=== PATIENT | female | born 1965 | race Hispanic/Latino ===

== ENCOUNTER 2018-11-20 13:29 | Emergency (ER) | payer OTHER, SELFPAY ==
[2018-11-20] MEDS ORDERED: Ketorolac Tromethamine 30 MG/ML VIAL ONE (14:10)
--- NOTE | 2018-11-20 14:41 | RAD ---
2 VIEWS LEFT ELBOW: Date: 11/20/18 HISTORY: Pain. Trauma. Fall. FINDINGS: There is a fracture fragment with uncertain donor site at the level of the distal humerus. There is a comminuted fracture involving the olecranon, as well as the proximal radius. There is slight angulat ion of the distal radius. There appears to be extension of fracture to the articular surface of the r adius. IMPRESSION: Extensive fractures as described above. POS: [facility]
--- NOTE | 2018-11-20 14:43 | RAD ---
3 VIEWS LEFT WRIST: Date: 11/20/18 HISTORY: Injury after falling on outstretched hand. FINDINGS: There is slight ulnar minus configuration. There is no evidence of a fracture or dislocation seen. Th ere is slight heterogeneity of the distal radius probably related to trabecular pattern. IMPRESSION: 1. No acute fracture is seen. If there is high clinical concern for fracture of the navicular bone, follow-up imaging of the left wrist is recommended in 4-7 days after conservative management to evalu ate for radiographically occult fracture. 2. Slight ulnar minus configuration. POS: [facility]
[2018-11-20] MEDS ORDERED: Morphine 4 MG/ML Carpuject ONE (14:59)
== END 2018-11-20 15:20 | disposition home or self-care (01) ==
LOC: SCSER 13:29
DX: S52.025A Nondisplaced fracture of olecranon process without intraarticular extension of left ulna, initial encounter for closed fracture (principal); S52.125A Nondisplaced fracture of head of left radius, initial encounter for closed fracture; W22.8XXA Striking against or struck by other objects, initial encounter
CPT/HCPCS: 29105; 96372; J1885; J2270

== ENCOUNTER 2018-11-24 17:02 | Outpatient (CLI) | payer OTHER, SELFPAY ==
[2018-11-24 17:23] LABS: Hemoglobin 14.8 g/dL (12.0-16.0); Mean Corpuscular HGB CONC 31.9 g/dL (32.0-36.0); Mean Corpuscular Hemoglobin 28.5 pg (27.0-31.0); Mean Corpuscular Volume 89.3 fL (78.0-98.0); Mean Platelet Volume 6.7 fL (7.4-10.4); Platelet Count 388 thou/uL (130-400); RBC Distribution Width 13.1 % (11.5-14.5); White Blood Cell (WBC) Count 10.7 thou/uL (4.8-10.8)
--- NOTE | 2018-11-26 07:39 | EKG ---
Test Reason : Blood Pressure : / mmHG Vent. Rate : 093 BPM Atrial Rate : 093 BPM P-R Int : 124 ms QRS Dur : 078 ms QT Int : 344 ms P-R-T Axes : 044 -03 -03 degrees QTc Int : 427 ms Normal sinus rhythm Nonspecific ST abnormality Abnormal ECG No previous ECGs available Confirmed by ROCK LUNA ([id number]) on 11/26/2018 7:38:40 AM Referred By: JOSÉ MIGUEL Confirmed By:ROCK LUNA
== END 2018-11-24 17:03 | disposition home or self-care (01) ==
LOC: LABBT 17:02
PROVIDERS: ATTEND Orthopaedic Surgery
DX: Z01.818 Encounter for other preprocedural examination (principal)
CPT/HCPCS: 85027; 93005; 93010

== ENCOUNTER 2018-11-26 08:25 | Day surgery (SDC) | payer OTHER, SELFPAY ==
[2018-11-24 16:47] VITALS: BMI 40.7
[2018-11-26] MEDS ORDERED: Midazolam HCl 2 mg/2 ml Vial ONE (09:28)
[2018-11-26] MEDS ORDERED: Fentanyl 100 MCG/2 ML VIAL ONE ×2 (09:28→10:15)
[2018-11-26] MEDS ORDERED: Vancomycin HCl 1.5 GM in Sodium Chloride 0.9% 250 ML 300 ML IVPB SCH (09:30)
[2018-11-26] MEDS ORDERED: Ropivacaine 0.2% 550 ML 550 ML NERVE BLCK SCH (10:11)
[2018-11-26] MEDS ORDERED: Ondansetron PF 4 MG/2 ML Vial IVP PRN (10:11)
[2018-11-26] MEDS ORDERED: traMADol HCl 50 MG TAB PO PRN ×2 (10:11)
[2018-11-26] MEDS ORDERED: Promethazine HCl 25 MG/ML VIAL IM PRN (10:11)
[2018-11-26] MEDS ORDERED: HYDROcodone/Acetaminophen 5/325 mg Tablet PO PRN ×2 (10:11)
[2018-11-26] MEDS ORDERED: Zolpidem Tartrate 5 MG TAB PO PRN (10:11)
[2018-11-26] MEDS ORDERED: Ketorolac Tromethamine 30 MG/ML VIAL IVP SCH (12:00)
[2018-11-26] MEDS ORDERED: Ropivacaine 0.2% HCl/PF (40 MG/20 ML VIAL) ONE (13:54)
[2018-11-26] MEDS ORDERED: Ropivacaine 0.5% HCl/PF (150 MG/30 ML VIAL) ONE (13:54)
[2018-11-26] MEDS ORDERED: Lidocaine 1% PF 5 ML VIAL ONE (13:59)
[2018-11-26] MEDS ORDERED: Ondansetron PF 4 MG/2 ML Vial ONE (13:59)
[2018-11-26] MEDS ORDERED: PROPOFOL 200 MG/20 ML VIAL ONE (13:59)
[2018-11-26] MEDS ORDERED: Dexamethasone 20 MG/5 ML VIAL ONE (13:59)
[2018-11-26] MEDS ORDERED: Ketorolac Tromethamine 30 MG/ML VIAL ONE (13:59)
--- NOTE | 2018-11-26 20:47 | RAD ---
LEFT ELBOW FOUR VIEWS: 11/26/18 INDICATION: Fracture. COMPARISON: Prior exam dated 11/20/18. FINDINGS: There has been interval placement of partially threaded screw transfixing the patient's olecranon fra cture. Fracture alignment is near anatomic. There is radial head resection and placement of a radial head prosthesis. Total fluoroscopic time is 68.1 seconds. Total exposure was 1.70 mGy. IMPRESSION: Interval ORIF of the patient's olecranon fracture with radial head resection and placement of a radia l head prosthesis. POS: [facility]
--- NOTE | 2018-11-27 02:50 | OP ---
DATE OF PROCEDURE: 11/26/2018 PREOPERATIVE DIAGNOSES: 1. Comminuted left radial head fracture. 2. Olecranon fracture. 3. Medial epicondyle avulsion. POSTOPERATIVE DIAGNOSES: 1. Guillermo III left radial head fracture, greater than three fragments. 2. Transverse olecranon fracture. 3. Medial epicondyle avulsion fracture. 4. Intact collateral ligaments. PROCEDURES PERFORMED: 1. Left radial head arthroplasty with metal implant. 2. Open reduction and internal fixation of olecranon fracture. 3. Stress radiographs of medial and ulnar collateral ligament. 4. Long-arm splint. HOT PLATE PRESS OPERATOR: Trace Murray. ANESTHESIOLOGIST: . ANESTHESIA: The patient received a LMA with a supraclavicular block. ESTIMATED BLOOD LOSS: 50 mL. TOURNIQUET TIME: 68 minutes at 250 mmHg. ANTIBIOTICS: Ancef 2 g Vanc 1.5 g IMPLANTS: [employer] ball, size 4+ 6.5 mm stem with an Evolve head size +2 , 20 mm in diameter. The patient also had a 6.5 x 95 mm cancellous screw and a 13 mm washer x1. COMPLICATIONS: None. HISTORY OF PRESENT ILLNESS: Ms. Mendosa is a 53-year-old female, status post fall while on the tractor, fell on the 15th, sustaining a fracture dislocation of the elbow. The patient was brought into the clinic and seen for her elbow fracture. I discussed with her that I did not feel the radial head was reconstructible given its comminution and the patient's age. The patient had olecranon that was nondisplaced which could be fixed; and a medial avulsion fracture, I would likely treat conservatively unless there are collateral ligament injuries. She understood the risks and benefits of surgery to include pain, scar , bleeding, infection, damage to vital structures, decreased range of motion and strength, nonunion, malunion, fracture above and below the stem, need for further surgery. She understood these risks and benefits and elected to proceed. DESCRIPTION OF PROCEDURE: Time-out was performed, designating the patient's left upper extremity as the operative site based on site, consents, and markings. After time-out, the patient had a posterior incision made in the midline down through skin to the triceps. I created a radial flap to expose the Yanni interval. After exposing the ulna and the Yanni interval, I moved back and placed a pin under fluoroscopic guidance based on center-center position from the head and passed a pin up the shaft of the bone. I then tapped about 100 mm and placed a 95 mm screw with a washer, which compressed down my small little transverse fracture pattern of the olecranon. I then moved to patient's Yanni interval and made an incision along the Yanni interval and found anconeus, came down on the extensor carpi radialis longus and brevis, taking those anteriorly as well as some muscular plane to expose the patient's capitellum, came down onto the radial head. I pronated the arm to keep the posterior interosseous nerve out of the course of the action. We stayed posteriorly and dissected down bluntly and sharply on the patient's neck. There was a little bit of a lateral cortical break, which I did not desire cerclage. I did not feel that it would help with stability. I removed the head, sized it to 22 mm articular to the cartilage surface with 20 mm for the bone, downsized to 20 mm head. I trialed and ultimately went up with a +4 and +2, we then felt like we had the best alignment based on AP and lateral radiographs with a lesser sigmoid notch as well as overall good mismatch. The patient's stem was sunk about 13 mm of the 22 mm, that was not completely protected by the comminuted segment. I then trialed, I followed on AP and lateral radiographs and saw that there was no instability of the collateral ligaments. I therefore removed my implant trial, placed my final implant, washed and closed the patient's Yanni interval with 0 Vicryl. I then stress viewed the x- rays, it showed all reduced in place, then I closed the skin with 2-0 and skin stephanie. The patient will be placed in a long-arm splint. She will follow up with me in clinic in 10 to 14 days. She will be given hydrocodone for pain relief. Job ID: [id number] [facility]
== END 2018-11-26 14:20 | disposition home or self-care (01) ==
LOC: SDC 08:25
PROVIDERS: ATTEND Orthopaedic Surgery
PROC: 0PRJ0JZ Replacement of Left Radius with Synthetic Substitute, Open Approach (ICD-10-PCS; principal; 2018-11-26)
PROC: 0PSL04Z Reposition Left Ulna with Internal Fixation Device, Open Approach (ICD-10-PCS; principal; 2018-11-26)
DX: S52.022A Displaced fracture of olecranon process without intraarticular extension of left ulna, initial encounter for closed fracture (principal); S52.122A Displaced fracture of head of left radius, initial encounter for closed fracture; S42.442A Displaced fracture (avulsion) of medial epicondyle of left humerus, initial encounter for closed fracture; W17.89XA Other fall from one level to another, initial encounter
CPT/HCPCS: 76000; A4306; C1713; C1769; C1776; J1100; J1885; J2001; J2250; J2405; J2704; J2795; J3010; J3370; J7050